=== PATIENT | female | born 1995 | race African-American/Black ===

== ENCOUNTER 2021-02-11 17:02 | Emergency (ER) | payer OTHER ==
[~2021-02-11] VITALS: Ht 160 cm; Wt 55.5 kg
[2021-02-11 18:12] LABS: BASO # 0.1 10^3/uL (0.0-0.2); BASO % 0.6 % (0.0-1.0); EOS # 0.1 10^3/uL (0.0-0.5); EOS % 1.5 % (0.0-3.0); HEMATOCRIT 39.6 % (36.0-47.0); LYMPH # 3.3 10^3/uL (1.5-5.0); LYMPH % 40.5 % (24.0-44.0); MEAN CORPUSCULAR HEMOGLOBIN 31.5 pg (27.0-33.0); MEAN CORPUSCULAR HGB CONC 32.8 g/dl (32.0-36.5); MEAN CORPUSCULAR VOLUME 95.9 fl (80.0-96.0); MONO # 0.5 10^3/uL (0.0-0.8); MONO % 6.6 % (2.0-8.0); NEUTROPHILS # 4.2 10^3/uL (1.5-8.5); NEUTROPHILS % 50.6 % (36.0-66.0); PLATELET COUNT, AUTOMATED 325 10^3/uL (150-450); RED BLOOD COUNT 4.13 10^6/uL (4.00-5.40); WHITE BLOOD COUNT 8.2 10^3/uL (4.0-10.0)
[2021-02-11 20:05] VITALS: BP 128/79
== END 2021-02-11 20:06 | disposition home or self-care (01) ==
LOC: M ED 17:02
DX: O26.851 Spotting complicating pregnancy, first trimester (principal); Z3A.00 Weeks of gestation of pregnancy not specified

== ENCOUNTER → 2021-02-13 | Outpatient (CLI) | payer OTHER | LOC: M LAB 15:41 | PROVIDERS: ATTEND Physician Assistant | DX: O20.9 Hemorrhage in early pregnancy, unspecified (principal) ==